=== PATIENT | female | born 1995 | race Caucasian/White ===

== ENCOUNTER 2018-04-10 14:35 | Emergency (ER) | payer OTHER ==
[~2018-04-10] VITALS: Ht 167.6 cm; Wt 80.0 kg
[~2018-04-10 14:35] MED LIST: ALBU8.5H8 INH; CIPR500T4 PO
[2018-04-10 14:43] VITALS: BP 128/69; PULSE 90; RESP 20; Ht 167.6 cm; Wt 80.0 kg
--- NOTE | 2018-04-10 20:31 | ERD ---
ER Documentation Chief Complaint Chief Complaint vaginal spotting and cramping since this morning LMP - 01/18/18 ROS All systems reviewed and are negative except as per history of present illness. Medications Home Meds Active Scripts Ciprofloxacin Hcl* (Ciprofloxacin Hcl*) 500 Mg Tablet, 500 MG PO BID for 3 Days, TAB Prov:ELIANA VU PA-C 09/09/14 Reported Medications Albuterol Sulfate* (Proair HFA*) 8.5 Gm Hfa.aer.ad, 2 PUFF INH Q4H PRN for WHEEZING AND SOB, INH 09/09/14 Allergies Allergies: Coded Allergies: No Known Allergy (Unverified , 09/09/14) PMhx/Soc Medical and Surgical Hx: pt denies Medical Hx, pt denies Surgical Hx Hx Alcohol Use: No Hx Substance Use: No Hx Tobacco Use: No Smoking Status: Never smoker Physical Exam Vitals Vital Signs Date Temp Pulse Resp B/P (MAP) Pulse Ox O2 O2 Flow FiO2 Time Delivery Rate 04/10/18 98.7 90 20 128/69 100 14:43 (88) Physical Exam Const: No acute distress Head: Atraumatic Eyes: Normal Conjunctiva ENT: Normal External Ears, Nose and Mouth. Neck: Full range of motion. No meningismus. Resp: Clear to auscultation bilaterally Cardio: Regular rate and rhythm, no murmurs Abd: Soft, non tender, non distended. Normal bowel sounds Skin: No petechiae or rashes Back: No midline or flank tenderness Ext: No cyanosis, or edema Neur: Awake and alert Psych: Normal Mood and Affect Result Diagram: 04/10/18 9490 Results 24 hrs Laboratory Tests Test 04/10/18 18:50 04/10/18 19:09 White Blood Count 9.4 10^3/ul Red Blood Count 3.89 10^6/ul Hemoglobin 11.4 g/dl Hematocrit 34.0 % Mean Corpuscular Volume 87.4 fl Mean Corpuscular Hemoglobin 29.3 pg Mean Corpuscular Hemoglobin Concent 33.5 g/dl Red Cell Distribution Width 13.8 % Platelet Count 376 10^3/UL Mean Platelet Volume 8.6 fl Immature Granulocytes % 0.500 % Neutrophils % % Segmented Neutrophils % (Manual) 48 % Band Neutrophils % (Manual) 11 % Lymphocytes % % Lymphocytes % (Manual) 36 % Monocytes % % Monocytes % (Manual) 5 % Eosinophils % % Basophils % % Nucleated Red Blood Cells % 0.0 /100WBC Immature Granulocytes # 0.050 10^3/ul Neutrophils # 10^3/ul Neutrophils # (Manual) 4.6 10^3/ul Band Neutrophils # 1.0 10^3/ul Lymphocytes (Manual) 3.3 10^3/ul Lymphocytes # 10^3/ul Monocytes # 10^3/ul Monocytes # (Manual) 0.4 10^3/ul Eosinophils # 10^3/ul Basophils # 10^3/ul Nucleated Red Blood Cells # 10^3/ul Platelet Estimate NORMAL Giant Platelets 1 % Polychromasia 1+ Anisocytosis 1+ Microcytosis 1+ Beta HCG, Quantitative 899164.0 mIU/ml Urine Color STRAW Urine Clarity CLEAR Urine pH 6.0 Urine Specific [place] 1.008 Urine Ketones NEGATIVE mg/dL Urine Nitrite NEGATIVE mg/dL Urine Bilirubin NEGATIVE mg/dL Urine Urobilinogen NEGATIVE mg/dL Urine Leukocyte Esterase TRACE Saurav/ul Urine Microscopic RBC 5 /HPF Urine Microscopic WBC 2 /HPF Urine Squamous Epithelial Cells MODERATE /HPF Urine Bacteria FEW /HPF Urine Hemoglobin 1+ mg/dL Urine Glucose NEGATIVE mg/dL Urine Total Protein NEGATIVE mg/dl Departure Diagnosis: Primary Impression: Vaginal bleeding in patient at less than 20 weeks ges... Condition: LACY Dawn DO Apr 10, 2018 20:31
== END 2018-04-11 01:34 | disposition left against medical advice (07) ==
LOC: FTE 14:35
DX: O20.9 Hemorrhage in early pregnancy, unspecified (principal); Z3A.11 11 weeks gestation of pregnancy
CPT/HCPCS: 36415; 76801; 81001; 84702; 85025; Z7502